=== PATIENT | female | born 1965 | race Two or more races ===

== ENCOUNTER 2024-08-31 01:24 | Inpatient (IN) | payer MEDICAID, SELFPAY ==
[2024-08-31] VITALS (15 sets, daily range): BP systolic 107–170; BP diastolic 75–90; PULSE 62–85; RESP 15–24; TEMP 36.4–36.9; O2SAT 95–98; BMI 27.3; BMI 29.0
--- NOTE | 2024-08-31 01:43 | XR_ITS ---
Examination: AP chest single view Technique one AP portable upright chest single view Exam date 9: August 31, 2024 0204 hours INDICATIONS: Coughing shortness of breath today. FINDINGS: Normal heart size. Lungs are clear. The osseous structures are intact IMPRESSION: No active disease
--- NOTE | 2024-08-31 01:44 | EDRME_ITS ---
Rapid Medical Screening Exam [facility] Arrival date/time: 08/31/24 01:24 58F with history of DM and HTN presents to ED with 1 week of worsening cough and SOB. Chief Complaint: Asthma Vital signs: Vital Signs Temperature 98.1 F 08/31/24 01:32 Pulse Rate 82 08/31/24 01:32 Respiratory Rate 24 H 08/31/24 01:32 Blood Pressure 170/90 H 08/31/24 01:32 Pulse Oximetry (%) 96 08/31/24 01:32
[2024-08-31] MEDS: DEXAMETHASONE SOD PHOS INJ 10 MG/ML VIAL PO (01:58)
[2024-08-31] MEDS: SODIUM CHLORIDE RT SOL 0.9% 3 ML NEBU INH (02:30)
[2024-08-31] MEDS: BUDESONIDE RT 0.5 MG/2 ML NEBU INH (02:30)
[2024-08-31] MEDS: LEVALBUTEROL RT 1.25 MG/0.5 ML NEBU 5 MG INH (02:30)
[2024-08-31] MEDS: IPRATROPIUM RT 0.5 MG/ 2.5 ML NEBU 1 MG INH (02:30)
[2024-08-31 03:17] LABS: Alanine Aminotransferase 27 U/L (10-49); Albumin, Serum 4.7 gm/dL (3.5-5.0); Albumin/Globulin Ratio 1.6 (1.2-2.2); Alkaline Phosphatase 109 U/L (46-116); Anion Gap 9 (7-16); Aspartate Amino Transferase 19 U/L (0-34); B-Type Natriuretic Peptide < 20 pg/mL (0-100); BUN/Creatinine Ratio 13 Ratio (12-20); Bilirubin,Total 0.6 mg/dL (0.3-1.2); Blood Urea Nitrogen 8 mg/dL (9-23); Calcium 9.9 mg/dL (8.3-10.6); Calcium (Corrected) 9.9 mg/dL (8.5-10.1); Carbon Dioxide 25.9 mMol/L (20.0-31.0); Chloride 102 mMol/L (98-107); Creatinine (Component) 0.6 mg/dL (0.6-1.3); Glucose 175 mg/dL (74-106); Magnesium 2.1 mg/dL (1.6-2.6); Osmolality,Calculated 276 (275-295); Potassium 3.8 mMol/L (3.4-5.1); Procalcitonin 0.07 ng/ml (0.0-0.49); Sodium 137 mMol/L (136-145); Total Protein 7.7 gm/dL (5.7-8.2); Troponin I < 0.020 ng/mL (0.0-0.045); eGFR > 60 See Note
[2024-08-31 03:21] LABS: Basophils # (Auto) 0.1 Thou/mm3 (0.0-0.2); Basophils % (Auto) 1 % (0-2.5); Eosinophils # (Auto) 2.4 Thou/mm3 (0.0-0.5); Eosinophils % (Auto) 18 % (0-10); Hemoglobin 13.8 g/dL (12.0-16.0); Immature Granulocytes % (Auto) 0 % (0-0); Immature Granulocytes Auto 0.04 Thou/mm3 (0.00-0.00); Lymphocytes # (Auto) 4.2 Thou/mm3 (1.0-4.8); Lymphocytes % (Auto) 33 % (10-50); Mean Corpuscular HGB Conc 32.1 g/dl (31.0-37.0); Mean Corpuscular Hemoglobin 28.5 pg (25.0-35.0); Mean Corpuscular Volume 89 fL (80-100); Monocytes # (Auto) 0.8 Thou/mm3 (0.0-0.8); Monocytes % (Auto) 6 % (0-12); Neutrophils # (Auto) 5.4 Thou/mm3 (1.8-7.7); Neutrophils % (Auto) 42 % (37-80); Nucleated Red Blood Cell % 0 /100 WBC (0); Platelet Count 228 Thou/mm3 (140-440); RDW Standard Deviation 42.7 fL (36.4-46.3); Red Blood Count 4.85 Miln/mm3 (4.00-5.20)
[2024-08-31] MEDS: MethylPREDNISolone SOD SUCC 62.5 MG/ML 2ML VIAL 125 MG IVP (03:25)
[2024-08-31] MEDS: Magnesium Sulfate 2 GM Ivpb 2 GM/50 ML BAG IV (03:44)
[2024-08-31 03:48] LABS: Path Review Blood Smear Sent to Pathologist
[2024-08-31 03:53] LABS: D-Dimer < 250 ng/mL (<600)
--- NOTE | 2024-08-31 04:54 | ESHP_ITS ---
<Statement entered by Bishnu Pozo MD - 08/31/24 21:34> I Bishnu Pozo MD reviewed the note and agree with the resident's assessment & plan with exceptions as below. I have personally reviewed labs, imaging, home meds/prior records, examined the patient, formulated and discussed management plan with the IM team. A 58-year F with Hx of HTN, HLD, DM, asthma with recent sick contact presented to ED with shortness of breath and wheezing for past 5-7 days. Patient noted to be tachypneic, in mild respiratory distress with mild leukocytosis. Procalcitonin within normal limits, CXR unremarkable for clear infiltrates. Admitted for acute asthma exacerbation with potential viral respiratory tract infection. Administer magnesium sulfate 2 mg x 1 IV, DuoNeb Q 15 hours x 4 with continuation of DuoNeb every 4 hours, start on Dulera twice daily, administer prednisone 40 mg daily x 5 days. Patient noted to have significant triglyceridemia. Started on high intensity statins. Documentation for date of: 08/31/24 HPI History of Present Illness History of present illness: The patient is a 58-year-old female with a past medical history of hypertension, diabetes, asthma presenting from home to the ED on 08/31/2024 with shortness of breath and wheezing of about a weeks duration. She was in her usual state of health until about a week ago after visiting her in rehab when she realized that she was getting increasingly short of breath. About 3 days later, she had a lot of wheezing and was using her rescue inhaler but realized that she required it a lot more than usual. She denies any sick contact and she is unaware of whether or not she exposed to any environmental triggers. She also endorses cough that initially was dry but has progressively been productive with whitish sputum, more bothersome and causes her chest pain because of how frequently and intensely she coughs. At baseline, the patient states that she only requires her inhaler about once every 2 weeks and has not had any exacerbation in many months. She denies fever, hemoptysis, palpitations, weight loss or night sweats. ED course: In the ED, patient was afebrile, initially hypertensive and tachypneic with labored breathing, initially saturating at 96% on room air but had to be put on oxygen as every time she coughed she was noted to desat. CBC is unremarkable as well as CMP except for glucose of 175. Chest x-ray was done which shows no consolidations some minimal hilar lymphadenopathy, otherwise unremarkable-pending final read. In the ED, she received Solu-Medrol, dexamethasone, magnesium and breathing treatments but persistently requiring oxygen. PMHx-as above PSHx-male Social sbxrsvk-zev-eoivot does not drink alcohol or use illicit drugs Home Meds-metformin 500 mg daily Review of Systems Review of Systems Narrative Review of Systems: GENERAL: Denies fevers/chills or diaphoresis. HEENT: Denies headache or visual/hearing changes. Denies nasal discharge. NEURO: Denies unusual weakness or difficulty speaking. CARDIO: Admits chest pain denies palpitations PULM: Admits SOB, coughing and wheezing. GI: Denies abdominal pain, N/V/C/D/reflux/gas, bright red blood per rectum or melena. Reports having BMs. URO: Denies burning/itching/pain/urinary changes. MSK/EXT/SKIN: Denies joint/skeletal/muscle pain, issues/changes in upper or lower extremities, itchiness, or superficial pain. PSYCH: Cooperative, pleasant mood & affect. Exam Vital Signs Temp Pulse Resp BP Pulse Ox O2 Flow Rate 98.1 F 79 16 170/90 H 97 2 08/31/24 01:32 08/31/24 03:15 08/31/24 03:15 08/31/24 01:32 08/31/24 03:15 08/31/24 03:15 Narrative Exam GENERAL: AAOX3 NEURO: CAMPUS AIDE grossly intact, moves extremities x4 HEENT: Moist mucosa. Eyes open, symmetrical, & clear CARDIO: No chest pain on palpation. Heart RRR, no obvious murmurs PULM: NDiffuse wheezing in all lung martínez. GI: Abdomen soft, nondistended, no pain on palpation. BSx4 URO/[employer]:: No further abnormalities noted. SKIN/MSK/EXT: Atrophic lower extremities Results: Labs 08/31/24 02:04 08/31/24 02:04 Labs: Short CBC 08/31/24 Range/Units 02:04 WBC 13.0 H (3.6-11.0) Thou/mm3 Hgb 13.8 (12.0-16.0) g/dL Hct 43.0 (36.0-46.0) % Plt Count 228 (140-440) Thou/mm3 BMP 08/31/24 02:04 Sodium 137 Potassium 3.8 Chloride 102 Carbon Dioxide 25.9 BUN 8 L Creatinine 0.6 Glucose 175 H Calcium 9.9 Cardiac Enzymes 08/31/24 Range/Units 02:04 Troponin I < 0.020 (0.0-0.045) ng/mL Liver Function 08/31/24 Range/Units 02:04 Total Bilirubin 0.6 (0.3-1.2) mg/dL AST 19 (0-34) U/L ALT 27 (10-49) U/L Alkaline Phosphatase 109 (46-116) U/L Albumin 4.7 (3.5-5.0) gm/dL Quality Measures Quality Measures VTE prophylaxis Medications Home Medications and Allergies Home Medications ?Medication ?Instructions ?Recorded ?Confirmed ?Type empagliflozin 25 mg tablet 25 mg PO QAM 04/01/23 04/01/23 History (Jardiance) lisinopril 2.5 mg tablet 2.5 mg PO QDAY 04/01/23 04/01/23 History pravastatin 40 mg tablet 40 mg PO QDAY 04/01/23 04/01/23 History sitagliptin phosphate 50 1 tab PO BID 04/01/23 04/01/23 History mg-metformin 1,000 mg tablet (Janumet) Allergies Allergy/AdvReac Type Severity Reaction Status Date / Time naproxen AdvReac Intermediate RASH, BODY Verified 04/01/23 13:49 HEAVINESS, NAUSEA Visit Medications Acetaminophen (Acetaminophen 325 Mg Tablet) 650 mg PO Q6H PRN PRN Reason: Pain 1-3 or Fever >100.3 Stop: 09/30/24 04:41 Heparin Sodium (Porcine) (Heparin Sod Inj 5000 Unit/Ml Vial) 5,000 unit SC Q12HR SANDEEP Stop: 09/14/24 08:59 Ondansetron HCl (Ondansetron Inj 2 Mg/Ml Inj 2 Ml) 4 mg IV Q6H PRN; Protocol PRN Reason: NAUSEA OR VOMITING Stop: 09/30/24 04:41 Sodium Chloride (Sodium Chloride Rt Lashaun 0.9% 3 Ml Nebu) 3 ml INH PRN PRN PRN Reason: SOLN Stop: 09/30/24 01:42 Last Admin: 08/31/24 02:30 Dose: 3 ml Discontinued Medications Budesonide (Budesonide Rt 0.5 Mg/2 Ml Nebu) 0.5 mg INH X1 ONE Stop: 08/31/24 01:46 Last Admin: 08/31/24 02:30 Dose: 0.5 mg Dexamethasone Sodium Phosphate (Dexamethasone Sod Phos Inj 10 Mg/Ml Vial) 10 mg PO X1 ONE Stop: 08/31/24 01:44 Last Admin: 08/31/24 01:58 Dose: 10 mg Magnesium Sulfate (Magnesium Sulfate Ivpb) 4 gm in 50 mls @ 12.5 mls/hr IV X1 ONE Stop: 08/31/24 07:16 Last Admin: 08/31/24 03:49 Dose: Not Given Magnesium Sulfate (Magnesium Sulfate Ivpb) 2 gm in 50 mls @ 999 mls/hr IV X1 ONE Stop: 08/31/24 03:43 Last Admin: 08/31/24 03:44 Dose: 999 mls/hr Ipratropium [place] (Ipratropium Rt 0.5 Mg/ 2.5 Ml Nebu) 1 mg INH X1 ONE Stop: 08/31/24 01:44 Last Admin: 08/31/24 02:30 Dose: 1 mg Levalbuterol HCl (Levalbuterol Rt 1.25 Mg/0.5 Ml Nebu) 5 mg INH X1 ONE Stop: 08/31/24 01:44 Last Admin: 08/31/24 02:30 Dose: 5 mg Methylprednisolone Sodium Succinate (Methylprednisolone Sod Succ 62.5 Mg/Ml 2ml Vial) 125 mg IVP X1 ONE Stop: 08/31/24 03:18 Last Admin: 08/31/24 03:25 Dose: 125 mg Assessment & Plan Assessment Summary: The patient is a 58-year-old female with a past medical history of hypertension, diabetes, asthma presenting from home to the ED on 08/31/2024 with shortness of breath and wheezing of about a weeks duration. #Acute hypoxic respiratory failure #Asthma exacerbation #History of asthma The patient presented with 1 week history of shortness of breath and wheezing, associated with initial dry cough, which became productive with whitish sputum and mild chest pain whenever she coughed intensely, not exacerbated by inspiration. She is unsure whether or not she was exposed to any environmental triggers. At baseline, she only requires her inhaler about once every 2 weeks and has not had any exacerbation in many months. In the ED, patient was noted to have diffuse wheezing and was given dexamethasone, Solu-Medrol, magnesium and breathing treatments. Chest x-ray was negative for pneumonia and showed some hilar lymphadenopathy. Plan: -Admit to med telemetry -IV Solu-Medrol 40 mg daily -DuoNebs scheduled and as needed -Oxygen as needed -COVID, influenza, RSV #History of diabetes Patient has a history of diabetes reports that she is on metformin 500 mg daily. No A1c on file. Blood glucose on admission-175 Plan: -A1c -Blood glucose check AC -Insulin sliding scale #History of hypertension The patient has a documented history of hypertension but reports that she is not on any medications. Blood pressure on admission-170/90 but on examination, 117/72. Plan: -Continue to monitor blood pressure -Start antihypertensive if blood pressure stays elevated Health maintenance: Dispo: Med[facility] Diet: Regular DVT: SC Heparin Dobbins: None Lines: Peripheral Med Rec: Pending, f/u PT: Not ordered Code: Full Case was discussed with attending physician, Dr Sánchez Toribio MD PGY-1
--- NOTE | 2024-08-31 05:03 | EDNOTE_ITS ---
ED Asthma RME/HPI General Chief Complaint: Asthma Stated Complaint: SOB, HX ASTHMA Time Seen by Provider: 08/31/24 03:22 Arrival date/time: 08/31/24 01:24 RME / HPI RME / HPI Narrative: 08/31/24 01:24 58F with history of DM and HTN presents to ED with 1 week of worsening cough and SOB. This section includes all my notes and documentations, including HPI, PE, and ED course. Gadiel Chavis MD HPI: 58-year-old female here with about a week history of worsening cough, productive cough, purulent sputum, and dyspnea. No fever. No chest pain. Has asthma. No other complaints. ROS: All negative except as documented in HPI. Physical Exam: General: Alert and oriented. Hacking cough noted. Hypoxia noted needing oxygen. Eyes: Conjunctivae and lids clear. ENT: No nasal congestion. Pharynx normal. TM normal bilaterally. Neck: Supple. Heart: RRR. Lungs: Moderate respiratory distress. Severely decreased air movement with diffuse wheezing. Abdomen: Soft and nontender. Back: No CVA tenderness. Skin: Warm and dry. Neuro: Alert and oriented X 3. I reviewed all diagnostic test results. My interpretation of the EKG is sinus rhythm with nonspecific ST?T changes. My interpretation of the chest x-ray is no acute findings, official radiology report is pending. Blood tests remarkable for negative troponin/D-dimer/BNP. At this point, diagnoses include acute respiratory failure with asthma exacerba tion. Treatment here included oxygen, steroids, neb treatments, and MgSO4 2 gram IV. Significant improvement not noted. I discussed the case with our hospitalist. About the presentation and exam and diagnostics and treatments here. And need of further care in the hospital. Will accept the patient. Gadiel Chavis MD Related Data Home Medications ?Medication ?Instructions ?Recorded ?Confirmed empagliflozin 25 mg tablet 25 mg PO QAM 04/01/23 04/01/23 (Jardiance) lisinopril 2.5 mg tablet 2.5 mg PO QDAY 04/01/23 04/01/23 pravastatin 40 mg tablet 40 mg PO QDAY 04/01/23 04/01/23 sitagliptin phosphate 50 1 tab PO BID 04/01/23 04/01/23 mg-metformin 1,000 mg tablet (Janumet) Allergies Allergy/AdvReac Type Severity Reaction Status Date / Time naproxen AdvReac Intermediate RASH, BODY Verified 04/01/23 13:49 HEAVINESS, NAUSEA Course Quality Measures none Orders Category Date Time Status Bedside COVID-19 Antigen Test NOW Care 08/31/24 01:44 Active Bedside Influenza A&B Antigen Test NOW Care 08/31/24 01:44 Active COVID-19 Screening Questionnaire NOW Care 08/31/24 04:12 Active Decision to Admit X1 Care 08/31/24 04:12 Active EKG (ED ONLY) *Do not use* NOW Care 08/31/24 01:26 Completed EKG (ED Only) Stat Exams 08/31/24 01:26 Ordered XR chest 1V portable Stat Exams 08/31/24 01:43 Taken B-Type Natriuretic Peptide Stat Lab 08/31/24 02:04 Completed CBC Stat Lab 08/31/24 02:04 Completed Comprehensive Metabolic Panel Stat Lab 08/31/24 02:04 Completed D-Dimer Stat Lab 08/31/24 02:04 Completed Lactate (Lactic Acid) Stat Lab 08/31/24 02:04 Completed Magnesium Stat Lab 08/31/24 02:04 Completed Path Review Blood Smear Stat Lab 08/31/24 02:04 Completed Procalcitonin Stat Lab 08/31/24 02:04 Completed Troponin I Stat Lab 08/31/24 02:04 Completed Budesonide Rt [Pulmicort Rt Lashaun] Med 08/31/24 01:45 Discontinued 0.5 mg INH X1 ONE Dexamethasone Inj [Decadron Inj] Med 08/31/24 01:43 Discontinued 10 mg PO X1 ONE Ipratropium [place] Rt Lashaun [Atrovent Rt Lashaun] Med 08/31/24 01:43 Discontinued 1 mg INH X1 ONE Levalbuterol Rt [Xopenex Rt Lashaun] Med 08/31/24 01:43 Discontinued 5 mg INH X1 ONE Magnesium Sulfate 2 GM Ivpb [Magnesium Sulfate Ivpb] Med 08/31/24 03:41 Discontinued 2 gm in 50 ml IV X1 Magnesium Sulfate 4 GM Ivpb [Magnesium Sulfate Ivpb] Med 08/31/24 03:17 Discontinued 4 gm in 50 ml IV X1 MethylPREDNISolone.* [SoluMEDROL Inj] Med 08/31/24 02:52 Discontinued 125 mg .ROUTE .STK-MED ONE MethylPREDNISolone.* [SoluMEDROL Inj] Med 08/31/24 03:17 Discontinued 125 mg IVP X1 ONE Sodium Chloride Rt Lashaun 0.9% [NS Rt Lashaun 0.9%] Med 08/31/24 01:43 Active 3 ml INH PRN PRN Vital Signs Vital signs: Vital Signs Temperature 98.1 F 08/31/24 01:32 Pulse Rate 82 08/31/24 01:32 Respiratory Rate 24 H 08/31/24 01:32 Blood Pressure 170/90 H 08/31/24 01:32 Pulse Oximetry (%) 96 08/31/24 01:32 Asthma Patient data External records reviewed:: [facility] previous records Clinical information provided by:: patient and family Social determinants that could affect healthcare access:: none Patient has the following chronic illnesses:: Asthma and DM and HTN How is presenting disease/condition affected by chronic disease/condition?: exacerbated by Evaluation data The following diagnostics were reviewed and interpreted by me:: lab results, radiology exam(s) and EKG tracing(s) (Sinus rhythm with no acute ST-T changes) Lab and/or radiology exams considered but not ordered:: None Interpretation Summary: Respiratory failure and asthma exacerbation Medications / Prescriptions Medications or Prescriptions considered but not ordered:: None Medication administrations:: Medication Administration History Acetaminophen (Acetaminophen 325 Mg Tablet) 650 mg PO Q6H PRN PRN Reason: Pain 1-3 or Fever >100.3 Stop: 09/30/24 04:41 Albuterol/Ipratropium (Albuterol/Ipratropium (Duoneb) Rt Lashaun 3 Ml Nebu) 3 ml INH Q4HRRT SANDEEP Stop: 09/30/24 06:59 Albuterol/Ipratropium (Albuterol/Ipratropium (Duoneb) Rt Lashaun 3 Ml Nebu) 3 ml INH Q2HR PRN PRN Reason: SHORTNESS OF BREATH OR WHEEZE Stop: 09/30/24 04:57 Heparin Sodium (Porcine) (Heparin Sod Inj 5000 Unit/Ml Vial) 5,000 unit SC Q12HR SANDEEP Stop: 09/14/24 08:59 Methylprednisolone Sodium Succinate (Methylprednisolone Sod Succ 40 Mg Vial) 40 mg IVP QDAY SANDEEP Stop: 09/07/24 08:59 Ondansetron HCl (Ondansetron Inj 2 Mg/Ml Inj 2 Ml) 4 mg IV Q6H PRN; Protocol PRN Reason: NAUSEA OR VOMITING Stop: 09/30/24 04:41 Sodium Chloride (Sodium Chloride Rt Lashaun 0.9% 3 Ml Nebu) 3 ml INH PRN PRN PRN Reason: SOLN Stop: 09/30/24 01:42 Last Admin: 08/31/24 02:30 Dose: 3 ml Documented By: LETICIA Discontinued Medications Budesonide (Budesonide Rt 0.5 Mg/2 Ml Nebu) 0.5 mg INH X1 ONE Stop: 08/31/24 01:46 Last Admin: 08/31/24 02:30 Dose: 0.5 mg Documented By: LETICIA Dexamethasone Sodium Phosphate (Dexamethasone Sod Phos Inj 10 Mg/Ml Vial) 10 mg PO X1 ONE Stop: 08/31/24 01:44 Last Admin: 08/31/24 01:58 Dose: 10 mg Documented By: MACIEL Magnesium Sulfate (Magnesium Sulfate Ivpb) 4 gm in 50 mls @ 12.5 mls/hr IV X1 ONE Stop: 08/31/24 07:16 Last Admin: 08/31/24 03:49 Dose: Not Given Documented By: MACIEL Non-Admin Reason: Discontinued Magnesium Sulfate (Magnesium Sulfate Ivpb) 2 gm in 50 mls @ 999 mls/hr IV X1 ONE Stop: 08/31/24 03:43 Last Admin: 08/31/24 03:44 Dose: 999 mls/hr Documented By: MACIEL Ipratropium [place] (Ipratropium Rt 0.5 Mg/ 2.5 Ml Nebu) 1 mg INH X1 ONE Stop: 08/31/24 01:44 Last Admin: 08/31/24 02:30 Dose: 1 mg Documented By: LETICIA Levalbuterol HCl (Levalbuterol Rt 1.25 Mg/0.5 Ml Nebu) 5 mg INH X1 ONE Stop: 08/31/24 01:44 Last Admin: 08/31/24 02:30 Dose: 5 mg Documented By: LETICIA Methylprednisolone Sodium Succinate (Methylprednisolone Sod Succ 62.5 Mg/Ml 2ml Vial) 125 mg IVP X1 ONE Stop: 08/31/24 03:18 Last Admin: 08/31/24 03:25 Dose: 125 mg Documented By: MACIEL Methylprednisolone Sodium Succinate (Methylprednisolone Sod Succ 62.5 Mg/Ml 2ml Vial) Confirm Administered Dose 125 mg .ROUTE .STK-MED ONE Stop: 08/31/24 02:53 Last Admin: 08/31/24 03:20 Dose: Not Given Documented By: SF Non-Admin Reason: Override Medication Consultations Consultation(s) initiated? (list below): No Diagnosis Differential diagnosis asthma: Acute exacerbation, Status asthmaticus, Acute asthmatic bronchitis, PE, Pneumonia, COPD exacerbation, Pulmonary edema systolic, Pulmonary edema dystolic, ARDS and Pneumothorax Most likely diagnosis given after review of the tests above:: Respiratory failure and asthma exacerbation Admission Indicated Admission indicated?: indicated Explain why admission is indicated or not indicated:: Respiratory failure with hypoxia Admission Request Was there a request for admission?: Yes Admission Attestation Admission request attestation: Discussed case with Hospitalist service regarding admission. Discussed patients ED course, exam findings, labs, and radiology results. The Hospitalist [agrees,declines] to accept the patient for admission. Disposition Plan Disposition Plan: Admit Discharge Plan Plan Patient Disposition: Admit Acute Care w/in Hospital Problem List Clinical Impression: Asthma with acute exacerbation, Acute respiratory failure with hypoxia
[2024-08-31 05:16] LABS: Basophils # (Auto) 0.1 Thou/mm3 (0.0-0.2); Basophils % (Auto) 1 % (0-2.5); Immature Granulocytes % (Auto) 0 % (0-0); Mean Corpuscular Volume 87 fL (80-100); Neutrophils % (Auto) 47 % (37-80); Nucleated Red Blood Cell % 0 /100 WBC (0)
[2024-08-31 05:17] LABS: Immature Granulocytes Auto 0.05 Thou/mm3 (0.00-0.00); Monocytes # (Auto) 0.7 Thou/mm3 (0.0-0.8)
[2024-08-31 05:33] LABS: Alanine Aminotransferase 27 U/L (10-49); Albumin, Serum 4.7 gm/dL (3.5-5.0); Albumin/Globulin Ratio 1.5 (1.2-2.2); Alkaline Phosphatase 111 U/L (46-116); Anion Gap 11 (7-16); Aspartate Amino Transferase 19 U/L (0-34); BUN/Creatinine Ratio 15 Ratio (12-20); Bilirubin,Total 0.6 mg/dL (0.3-1.2); Blood Urea Nitrogen 9 mg/dL (9-23); Carbon Dioxide 24.2 mMol/L (20.0-31.0); Cardiac Risk Estimate 4.6 RATIO (3.7-5.6); Chloride 102 mMol/L (98-107); Cholesterol 234 mg/dL (132-200); Creatinine (Component) 0.6 mg/dL (0.6-1.3); Eosinophils # (Auto) 2.3 Thou/mm3 (0.0-0.5); Eosinophils % (Auto) 18 % (0-10); Globulin 3.1 gm/dL (2.3-3.5); Glucose 160 mg/dL (74-106); HDL Cholesterol 51 mg/dL (40-60); Hematocrit 42.7 % (36.0-46.0); Hemoglobin 13.9 g/dL (12.0-16.0); LDL Cholesterol,Calculated 108 mg/dL (0-130); Lymphocytes # (Auto) 3.8 Thou/mm3 (1.0-4.8); Lymphocytes % (Auto) 29 % (10-50); Magnesium 2.2 mg/dL (1.6-2.6); Mean Corpuscular HGB Conc 32.6 g/dl (31.0-37.0); Mean Corpuscular Hemoglobin 28.3 pg (25.0-35.0); Monocytes % (Auto) 6 % (0-12); Neutrophils # (Auto) 6.2 Thou/mm3 (1.8-7.7); Osmolality,Calculated 275 (275-295); Platelet Count 227 Thou/mm3 (140-440); Potassium 3.8 mMol/L (3.4-5.1); Red Blood Count 4.92 Miln/mm3 (4.00-5.20); Sodium 137 mMol/L (136-145); Thyroid Stimulating Hormone 2.34 uIU/mL (0.55-4.78); Total Protein 7.8 gm/dL (5.7-8.2); Triglycerides 377 mg/dL (30-150); White Blood Count 13.2 Thou/mm3 (3.6-11.0); eGFR > 60 See Note
[2024-08-31 05:52] LABS: Glucose Estimated Average 134 mg/dL (80-131); Hemoglobin A1C 6.3 % Hgb (4.8-6.0)
[2024-08-31] MEDS: INSULIN LISPRO (AdmeLOG) 1 UNIT/0.01 ML UNIT SC ×2 (07:50→12:12)
[2024-08-31] MEDS: ALBUTEROL/IPRATROPIUM (Duoneb) RT SOL 3 ML NEBU INH ×3 (08:17→20:24)
[2024-08-31] MEDS: LOSARTAN POTASSIUM 25 MG TABLET PO (09:59)
[2024-08-31] MEDS: HEPARIN SOD INJ 5000 UNIT/ML VIAL SC ×2 (09:59→20:47)
--- NOTE | 2024-08-31 15:34 | ESPR_ITS ---
Documentation for date of: 08/31/24 Subjective Subjective Interval history: Patient was at bedside this morning. No overnight events. Patient still had a lot of wheezing bilateral mostly on expiration. Will continue with Solu-Medrol and breathing treatments for now. Added incentive spirometry as well. No other complaints at this time. Exam Vital Signs Temp Pulse Resp BP Pulse Ox O2 Del Method O2 Flow Rate 97.7 F 67 15 130/76 96 Nasal Cannula 4 08/31/24 14:07 08/31/24 14:07 08/31/24 14:07 08/31/24 14:07 08/31/24 14:07 08/31/24 14:07 08/31/24 14:07 Narrative Exam General: A/O x3, mild respiratory distress Eyes: PERRL, EOMI. Anicteric, vision grossly intact. Ears: No ear pain, no ear discharge, Hearing grossly intact. Nose: No nasal discharge. Mouth/Throat: Dry mucous membranes, no redness, no lesions. Neck: Neck supple, non-tender, no cervical lymphadenopathy. Lungs: Wheezing FORREST, No accessory muscle use. Cardio: Normal S1/S2, regular rhythm, no murmurs, no JVD Abdomen: Soft, non-tender, no palpable masses, peristalsis present, no guarding or rebound. Extremities: Symmetrical, no significant deformities, no peripheral edema , non-tender, peripheral pulses presents. Skin: No rashes, no lesions, warm to touch. Neuro: No focal neurological deficits. motor and sensory intact Psych: Cooperative, appropriate mood and effect. Objective Labs 09/01/24 05:10 09/01/24 05:10 Labs: Laboratory Results - last 24 hr 08/31/24 08/31/24 02:04 05:05 WBC 13.0 H 13.2 H RBC 4.85 4.92 Hgb 13.8 13.9 Hct 43.0 42.7 MCV 89 87 MCH 28.5 28.3 MCHC 32.1 32.6 RDW Std Deviation 42.7 42.0 Plt Count 228 227 Neut % (Auto) 42 47 Lymph % (Auto) 33 29 [place] % (Auto) 6 6 Eos % (Auto) 18 H 18 H Baso % (Auto) 1 1 Neut # (Auto) 5.4 6.2 Lymph # (Auto) 4.2 3.8 [place] # (Auto) 0.8 0.7 Eos # (Auto) 2.4 H 2.3 H Baso # (Auto) 0.1 0.1 Immature Gran # (Auto) 0.04 H 0.05 H Absolute Nucleated RBC 0.00 0.00 Immature Gran % 0 0 Nucleated RBC % 0 0 Smear Path Review Sent to Pathologist D-Dimer < 250 Sodium 137 137 Potassium 3.8 3.8 Chloride 102 102 Carbon Dioxide 25.9 24.2 Anion Gap 9 11 BUN 8 L 9 Creatinine 0.6 0.6 Estim Creat Clear Calc 84.0 84.0 eGFR > 60 > 60 BUN/Creatinine Ratio 13 15 Glucose [address] Glu mg/dL 134 H Hemoglobin A1c 6.3 H Calculated Osmolality 276 275 Lactic Acid 2.0 Calcium 9.9 10.0 Corrected Calcium 9.9 10.0 Magnesium 2.1 2.2 Total Bilirubin 0.6 0.6 AST 19 19 ALT 27 27 Alkaline Phosphatase 109 111 Troponin I < 0.020 B-Natriuretic Peptide < 20 Total Protein 7.7 7.8 Albumin 4.7 4.7 Globulin 3.0 3.1 Albumin/Globulin Ratio 1.6 1.5 Triglycerides 377 H Cholesterol 234 H LDL Cholesterol, Calc 108 HDL Cholesterol 51 Cholesterol/HDL Ratio 4.6 Procalcitonin 0.07 TSH 2.34 Quality Measures Quality Measures VTE prophylaxis Assessment & Plan Assessment Current Active Medications: Generic Name Dose Route Start Last Admin Trade Name Freq PRN Reason Stop Dose Admin Acetaminophen 650 mg 08/31/24 04:42 Acetaminophen 325 Mg Tablet PO 09/30/24 04:41 Q6H PRN Pain 1-3 or Fever >100.3 Albuterol 2 puff 08/31/24 13:56 Albuterol Inh 8 Gm INH 09/30/24 13:59 Q2HR PRN wheezing/sob Dextrose 25 ml 08/31/24 05:10 Dextrose 50%-Water Inj 50 Ml Syringe IV 09/30/24 05:09 Q15MIN PRN BG 50-70 responsive npo pt Dextrose 50 ml 08/31/24 05:10 Dextrose 50%-Water Inj 50 Ml Syringe IV 09/30/24 05:09 Q15MIN PRN BG <50 OR BG <70 & pt unresponsive Glucagon 1 mg 08/31/24 05:10 Glucagon Inj 1 Mg Vial IM Q15MIN PRN BG <70, and no IV access Guaifenesin/Dextromethorphan 1 each 08/31/24 15:00 Guaifenesin/Dm Tablet PO 09/30/24 14:59 BID SANDEEP Heparin Sodium (Porcine) 5,000 unit 08/31/24 09:00 08/31/24 09:59 Heparin Sod Inj 5000 Unit/Ml Vial SC 09/14/24 08:59 5,000 unit Q12HR SANDEEP Administration Insulin Human Lispro 0 unit 08/31/24 11:30 08/31/24 12:12 Insulin Lispro (Admelog) 1 Unit/0.01 Ml Unit SC 09/30/24 11:29 4 unit AC SANDEEP Administration Protocol Losartan Potassium 25 mg 08/31/24 09:15 08/31/24 09:59 Losartan Potassium 25 Mg Tablet PO 09/30/24 09:14 25 mg QDAY SANDEPE Administration Methylprednisolone Sodium Succinate 40 mg 08/31/24 09:00 08/31/24 09:58 Methylprednisolone Sod Succ 40 Mg Vial IVP 09/07/24 08:59 40 mg QDAY SANDEEP Administration Ondansetron HCl 4 mg 08/31/24 04:42 Ondansetron Inj 2 Mg/Ml Inj 2 Ml IV 09/30/24 04:41 Q6H PRN NAUSEA OR VOMITING Protocol Fluticasone/Salmeterol 2 puff 08/31/24 19:00 Fluticasone/Salmeterol 250/50 14 Dose Inh INH 09/30/24 18:59 BIDRT SANDEEP Sodium Chloride 3 ml 08/31/24 01:43 08/31/24 02:30 Sodium Chloride Rt Lasha[place] 0.9% 3 Ml Nebu INH 09/30/24 01:42 3 ml PRN PRN Administration SOLN Plan 58-year-old female with past medical history of hypertension, diabetes, and asthma was admitted to the hospital on 08/31/2024 due to acute hypoxic respiratory failure likely secondary to asthma exacerbation. #Acute hypoxic especially failure likely secondary to #Asthma exacerbation #Hx of asthma ? Patient came in with complaints of 1 week of wheezing and shortness of breath as well as some dry cough which became productive with time. ? Patient does not have any sick contacts ? Chest x-ray did not have any pneumonia. Plan: ? Continue Solu-Medrol 40 mg IV daily ? Continue breathing treatments ? Continue oxygen as needed ? Incentive spirometry ? Will continue to monitor #DM2 ? A1c 6.3 today Plan: ? ISS ? Accu-Cheks and hypoglycemic protocol ordered #Hypertension ? Patient's blood pressure has been well-controlled during the hospital stay therefore we will hold antihypertensive medication for now. Disposition: Patient still has wheezing continue Solumedrol and breathing Tx. Diet: Carb low GI prophylaxis: not indicated DVT prophylaxis: Heparin Sc Code: Full Case disclosed with Attending Dr. Dennis and My senior Dr. Jorgensen PGY2. Benny Kohli PGY1 L Ms Garay is a 58-year-old female with past medical history of hypertension, diabetes, and asthma was admitted to the hospital on 08/31/2024 due to acute hypoxic respiratory failure likely secondary to asthma exacerbation. Started on duonebs PRN, albuterol INH and Combivent INH for ICS per GOLD guidelines for Asthma/COPD. She is currently on 2-3L via NC, sats 95-98%. Will monitor for 1 more day. Anticipate DC in 24 hours. Patient examined and case discussed with the team including attending physician. Note reviewed, I agree with the care plan as documented. - Drew Jorgensen MD, PGY 2 Attending Provider Attestation/Addendum I have discussed and was present for the essential components of the history, physical examination, diagnosis, and treatment plan with the resident. I agree with the patient's care as documented by the resident and amended herein by me. Henry Dennis DO. Although this document has been carefully reviewed, there may still be some phonetic and other typographical errors. These errors are purely grammatical due to imperfections in the software program and should not be construed in any way to compromise the substance of the patient's medical care during this visit.
[2024-08-31 18:33] LABS: Respiratory Syncytial Virus Ag Negative (Negative)
[2024-08-31] MEDS: FLUTICASONE/SALMETEROL 250/50 14 DOSE INH 2 PUFF INH (20:23)
[2024-08-31] MEDS: ACETAMINOPHEN 325 MG TABLET 650 MG PO (20:47)
[2024-08-31] MEDS: guaiFENesin/DM TABLET 1 EACH PO (20:47)
[2024-08-31] MEDS: BENZONATATE 100 MG CAPSULE PO (20:47)
[2024-09-01] VITALS (11 sets, daily range): BP systolic 98–138; BP diastolic 53–83; PULSE 62–86; RESP 14–22; TEMP 36–36.9; O2SAT 93–99; BMI 13.0
[2024-09-01] MEDS: ALBUTEROL/IPRATROPIUM (Duoneb) RT SOL 3 ML NEBU INH (01:02)
[2024-09-01 06:26] LABS: Partial Thromboplastin Time 28.5 Seconds (22.0-36.0); Prothrombin Time 11.1 Seconds (9.0-12.2)
[2024-09-01 06:47] LABS: Alanine Aminotransferase 24 U/L (10-49); Albumin, Serum 4.3 gm/dL (3.5-5.0); Albumin/Globulin Ratio 1.5 (1.2-2.2); Alkaline Phosphatase 96 U/L (46-116); Anion Gap 10 (7-16); BUN/Creatinine Ratio 34 Ratio (12-20); Bilirubin,Total 0.9 mg/dL (0.3-1.2); Blood Urea Nitrogen 17 mg/dL (9-23); Calcium 9.6 mg/dL (8.3-10.6); Calcium (Corrected) 9.6 mg/dL (8.5-10.1); Chloride 102 mMol/L (98-107); Creatinine (Component) 0.5 mg/dL (0.6-1.3); Estimated Creatinine Clearance 103.8 mL/min (>60); Globulin 2.9 gm/dL (2.3-3.5); Glucose 125 mg/dL (74-106); Magnesium 2.4 mg/dL (1.6-2.6); Osmolality,Calculated 276 (275-295); Phosphorous 4.7 mg/dL (2.4-5.1); Sodium 137 mMol/L (136-145); Total Protein 7.2 gm/dL (5.7-8.2); eGFR > 60 See Note
[2024-09-01 07:02] LABS: Aspartate Amino Transferase 14 U/L (0-34)
[2024-09-01 07:21] LABS: Basophils % (Auto) 0 % (0-2.5); Eosinophils % (Auto) 0 % (0-10); Hemoglobin 12.7 g/dL (12.0-16.0); Immature Granulocytes % (Auto) 0 % (0-0); Immature Granulocytes Auto 0.06 Thou/mm3 (0.00-0.00); Lymphocytes # (Auto) 2.7 Thou/mm3 (1.0-4.8); Lymphocytes % (Auto) 19 % (10-50); Mean Corpuscular Hemoglobin 28.3 pg (25.0-35.0); Mean Corpuscular Volume 92 fL (80-100); Monocytes # (Auto) 0.9 Thou/mm3 (0.0-0.8); Monocytes % (Auto) 7 % (0-12); Neutrophils # (Auto) 10.4 Thou/mm3 (1.8-7.7); Neutrophils % (Auto) 74 % (37-80); Nucleated Red Blood Cell % 0 /100 WBC (0); Platelet Count 228 Thou/mm3 (140-440); RDW Standard Deviation 45.4 fL (36.4-46.3); Red Blood Count 4.48 Miln/mm3 (4.00-5.20); White Blood Count 14.1 Thou/mm3 (3.6-11.0)
[2024-09-01] MEDS: FLUTICASONE/SALMETEROL 250/50 14 DOSE INH 2 PUFF INH ×2 (07:45→19:45)
[2024-09-01] MEDS: INSULIN LISPRO (AdmeLOG) 1 UNIT/0.01 ML UNIT SC ×2 (08:27→16:47)
[2024-09-01] MEDS: HEPARIN SOD INJ 5000 UNIT/ML VIAL SC ×2 (08:28→20:52)
[2024-09-01] MEDS: LOSARTAN POTASSIUM 25 MG TABLET PO (08:28)
[2024-09-01] MEDS: guaiFENesin/DM TABLET 1 EACH PO ×2 (08:28→20:52)
--- NOTE | 2024-09-01 10:48 | PC.SS ---
Addendum entered by Nargis Salinas 09/01/24 13:52: Updated physician of patient d/c plans. Patient became dizzy today. Prior to hospitalization she was ambulatory with walker. Patient will stay another day to monitor. Possible d/c weekend. Original Note: Patient is alert/oriented. She is Albanian speaking only. Patient states she lives with her children. Patient was admitted for hypoxic resp failure. She states she uses 02 at home as needed. She also uses a walker and cane at home. She is independent with ADL's but children assist as needed. Patient has hx: diabetes. She uses a glucometer machine at home. She follows at [facility] with Dr. Griffin and last appt was 3 weeks ago. SS received call from PT recommending short stay at SNF and patient agreeable . PT states patient was dizzy and not able to ambulate today. SS will set up through [facility]. Patient verbalized her daughter, Marivel, is the point of contact and alt designated caregiver. Family to provide transportation.
--- NOTE | 2024-09-01 11:24 | PC.NURSE ---
Pt on RA, O2 SATS 95%. Upon standing, O2 SATS 94% on RA. Pt states she uses O2 at home.
--- NOTE | 2024-09-01 13:17 | ESPR_ITS ---
Documentation for date of: 09/01/24 Subjective Subjective Interval history: Patient was seen and examined bedside. No acute overnight events. Reported that her shortness of breath improved from the time of admission. Complaining of occasional cough with sputum production. On auscultation, bilateral diffuse expiratory wheeze heard. Initially patient was on 1 L oxygen saturating at 94%. Stopped oxygen and patient was able to maintain at 94 per nurse, when tried to ambulate her, patient started feeling dizzy but no desaturations are noted. Orthostatic vitals are ordered and will observe the patient for today. Planning to discharge tomorrow if patient is able to ambulate without desaturating on room air. Exam Vital Signs Temp Pulse Resp BP Pulse Ox O2 Del Method O2 Flow Rate 97.0 F 86 18 126/77 93 L Nasal Cannula 1 09/01/24 12:00 09/01/24 12:00 09/01/24 12:00 09/01/24 12:00 09/01/24 12:00 09/01/24 12:00 09/01/24 12:00 Narrative Exam General: Awake. HEENT: Normocephalic, atraumatic, mucous membranes moist. Heart: Regular rate and rhythm, no murmurs. Lungs: Bilateral diffuse expiratory wheeze heard. Abdomen: Soft, nondistended, nontender, positive bowel sounds. ?No guarding or rebound tenderness. Neurologic: Alert and oriented x3, no gross neurological deficit, and patient able to move all 4 extremities. Extremities: No edema. Skin: No rash or ecchymoses. Objective Labs 09/01/24 05:10 09/01/24 05:10 Labs: Laboratory Results - last 24 hr 08/31/24 09/01/24 16:13 05:10 WBC 14.1 H RBC 4.48 Hgb 12.7 Hct 41.0 MCV 92 MCH 28.3 MCHC 31.0 RDW Std Deviation 45.4 Plt Count 228 Neut % (Auto) 74 Lymph % (Auto) 19 [place] % (Auto) 7 Eos % (Auto) 0 Baso % (Auto) 0 Neut # (Auto) 10.4 H Lymph # (Auto) 2.7 [place] # (Auto) 0.9 H Eos # (Auto) 0.0 Baso # (Auto) 0.0 Immature Gran # (Auto) 0.06 H Absolute Nucleated RBC 0.00 Immature Gran % 0 Nucleated RBC % 0 PT 11.1 INR 1.0 APTT 28.5 Sodium 137 Potassium 4.0 Chloride 102 Carbon Dioxide 25.0 Anion Gap 10 BUN 17 Creatinine 0.5 L Estim Creat Clear Calc 103.8 eGFR > 60 BUN/Creatinine Ratio 34 H Glucose 125 H Calculated Osmolality 276 Calcium 9.6 Corrected Calcium 9.6 Phosphorus 4.7 Magnesium 2.4 Total Bilirubin 0.9 AST 14 ALT 24 Alkaline Phosphatase 96 Total Protein 7.2 Albumin 4.3 Globulin 2.9 Albumin/Globulin Ratio 1.5 RSV Rapid Negative Quality Measures Quality Measures VTE prophylaxis Assessment & Plan Assessment Current Active Medications: Generic Name Dose Route Start Last Admin Trade Name Freq PRN Reason Stop Dose Admin Acetaminophen 650 mg 08/31/24 04:42 08/31/24 20:47 Acetaminophen 325 Mg Tablet PO 09/30/24 04:41 650 mg Q6H PRN Administration Pain 1-3 or Fever >100.3 Albuterol 2 puff 08/31/24 13:56 Albuterol Inh 8 Gm INH 09/30/24 13:59 Q2HR PRN wheezing/sob Albuterol/Ipratropium 3 ml 08/31/24 18:56 09/01/24 01:02 Albuterol/Ipratropium (Duoneb) Rt [place]asha[place] 3 Ml Nebu INH 09/30/24 18:59 3 ml Q4HRRT PRN Administration SHORTNESS OF BREATH OR WHEEZE Benzonatate 100 mg 08/31/24 19:19 08/31/24 20:47 Benzonatate 100 Mg Capsule PO 09/30/24 19:18 100 mg Q8HR PRN Administration COUGH Protocol Dextrose 25 ml 08/31/24 05:10 Dextrose 50%-Water Inj 50 Ml Syringe IV 09/30/24 05:09 Q15MIN PRN BG 50-70 responsive npo pt Dextrose 50 ml 08/31/24 05:10 Dextrose 50%-Water Inj 50 Ml Syringe IV 09/30/24 05:09 Q15MIN PRN BG <50 OR BG <70 & pt unresponsive Glucagon 1 mg 08/31/24 05:10 Glucagon Inj 1 Mg Vial IM Q15MIN PRN BG <70, and no IV access Guaifenesin/Dextromethorphan 1 each 08/31/24 15:00 09/01/24 08:28 Guaifenesin/Dm Tablet PO 09/30/24 14:59 1 each BID SANDEEP Administration Heparin Sodium (Porcine) 5,000 unit 08/31/24 09:00 09/01/24 08:28 Heparin Sod Inj 5000 Unit/Ml Vial SC 09/14/24 08:59 5,000 unit Q12HR SANDEEP Administration Insulin Human Lispro 0 unit 08/31/24 11:30 09/01/24 08:27 Insulin Lispro (Admelog) 1 Unit/0.01 Ml Unit SC 09/30/24 11:29 2 unit AC SANDEEP Administration Protocol Losartan Potassium 25 mg 08/31/24 09:15 09/01/24 08:28 Losartan Potassium 25 Mg Tablet PO 09/30/24 09:14 25 mg QDAY SANDEEP Administration Methylprednisolone Sodium Succinate 40 mg 08/31/24 09:00 09/01/24 08:28 Methylprednisolone Sod Succ 40 Mg Vial IVP 09/07/24 08:59 40 mg QDAY SANDEEP Administration Ondansetron HCl 4 mg 08/31/24 04:42 Ondansetron Inj 2 Mg/Ml Inj 2 Ml IV 09/30/24 04:41 Q6H PRN NAUSEA OR VOMITING Protocol Fluticasone/Salmeterol 2 puff 08/31/24 19:00 09/01/24 07:45 Fluticasone/Salmeterol 250/50 14 Dose Inh INH 09/30/24 18:59 2 puff BIDRT SANDEEP Administration Sodium Chloride 3 ml 08/31/24 01:43 08/31/24 02:30 Sodium Chloride Rt [place] 0.9% 3 Ml Nebu INH 09/30/24 01:42 3 ml PRN PRN Administration SOLN Plan 58-year-old female with past medical history of hypertension, diabetes, and asthma was admitted to the hospital on 08/31/2024 due to acute hypoxic respiratory failure likely secondary to asthma exacerbation. # Acute hypoxic respiratory failure, resolved # Asthma exacerbation # History of asthma, since 13 years using inhalers ? Patient came in with complaints of 1 week of wheezing and shortness of breath as well as some dry cough which became productive with time. ? Denies fever, burning micturition, abdominal pain, recent travel. ? Chest x-ray did not show any new infiltrates. - RSV is negative Plan: ? Continue Solu-Medrol 40 mg IV daily ? Continue breathing treatments ? Continue oxygen as needed ? Incentive spirometry ? Will continue to monitor #DM2 ? A1c 6.3 today Plan: ? ISS ? Accu-Cheks and hypoglycemic protocol ordered #Hypertension ? Patient's blood pressure has been well-controlled during the hospital stay therefore we will hold antihypertensive medication for now. Disposition: MedSurg Diet: Carb low GI prophylaxis: not indicated DVT prophylaxis: Heparin Sc Code: Full Patient plan of care was discussed with the attending physician, Dr. Sonny Aragon, PGY1 Attending Provider Attestation/Addendum I have discussed and was present for the essential components of the history, physical examination, diagnosis, and treatment plan with the resident. I agree with the patient's care as documented by the resident and amended herein by me. Henry Dennis, DO. Patient seen and evaluated this AM. Patient states she clinically feels improved today, wheezing improved on physical exam bilaterally on physical examination however the patient did get a bit lightheaded when working with physical therapy today as well as shortness of breath. As such, we will keep the patient an additional night and continue steroids, will attempt to get the patient up to chair today, nurse notified. Patient will also need to be discharged with a SARAH and inhaled steroids for improved control. Patient may also need home O2. Will continue to monitor closely Although this document has been carefully reviewed, there may still be some phonetic and other typographical errors. These errors are purely grammatical due to imperfections in the software program and should not be construed in any way to compromise the substance of the patient's medical care during this visit.
[2024-09-01] MEDS: Milk Of Magnesia Susp 30 ML UDC PO (14:36)
[2024-09-02] VITALS (7 sets, daily range): BP systolic 108–123; BP diastolic 73–79; PULSE 56–78; RESP 16–22; TEMP 36–37; O2SAT 93–98
[2024-09-02 06:29] LABS: Basophils # (Auto) 0.1 Thou/mm3 (0.0-0.2); Basophils % (Auto) 1 % (0-2.5); Eosinophils # (Auto) 0.1 Thou/mm3 (0.0-0.5); Eosinophils % (Auto) 1 % (0-10); Hematocrit 40.1 % (36.0-46.0); Hemoglobin 12.7 g/dL (12.0-16.0); Immature Granulocytes % (Auto) 0 % (0-0); Immature Granulocytes Auto 0.05 Thou/mm3 (0.00-0.00); Lymphocytes # (Auto) 4.2 Thou/mm3 (1.0-4.8); Lymphocytes % (Auto) 38 % (10-50); Mean Corpuscular HGB Conc 31.7 g/dl (31.0-37.0); Mean Corpuscular Hemoglobin 28.3 pg (25.0-35.0); Mean Corpuscular Volume 90 fL (80-100); Monocytes # (Auto) 0.7 Thou/mm3 (0.0-0.8); Monocytes % (Auto) 6 % (0-12); Neutrophils # (Auto) 6.2 Thou/mm3 (1.8-7.7); Neutrophils % (Auto) 55 % (37-80); Nucleated Red Blood Cell % 0 /100 WBC (0); Platelet Count 233 Thou/mm3 (140-440); RDW Standard Deviation 44.3 fL (36.4-46.3); Red Blood Count 4.48 Miln/mm3 (4.00-5.20); White Blood Count 11.3 Thou/mm3 (3.6-11.0)
[2024-09-02] MEDS: FLUTICASONE/SALMETEROL 250/50 14 DOSE INH 2 PUFF INH (06:51)
[2024-09-02 07:10] LABS: Alanine Aminotransferase 24 U/L (10-49); Albumin, Serum 4.3 gm/dL (3.5-5.0); Albumin/Globulin Ratio 1.6 (1.2-2.2); Alkaline Phosphatase 86 U/L (46-116); Anion Gap 6 (7-16); Aspartate Amino Transferase 13 U/L (0-34); BUN/Creatinine Ratio 27 Ratio (12-20); Bilirubin,Total 0.8 mg/dL (0.3-1.2); Blood Urea Nitrogen 16 mg/dL (9-23); Calcium 9.1 mg/dL (8.3-10.6); Calcium (Corrected) 9.1 mg/dL (8.5-10.1); Chloride 105 mMol/L (98-107); Creatinine (Component) 0.6 mg/dL (0.6-1.3); Estimated Creatinine Clearance 86.5 mL/min (>60); Globulin 2.7 gm/dL (2.3-3.5); Glucose 113 mg/dL (74-106); Magnesium 2.5 mg/dL (1.6-2.6); Osmolality,Calculated 274 (275-295); Phosphorous 3.2 mg/dL (2.4-5.1); Potassium 4.3 mMol/L (3.4-5.1); Sodium 136 mMol/L (136-145); eGFR > 60 See Note
[2024-09-02] MEDS: LOSARTAN POTASSIUM 25 MG TABLET PO (08:07)
[2024-09-02] MEDS: HEPARIN SOD INJ 5000 UNIT/ML VIAL SC (08:07)
[2024-09-02] MEDS: guaiFENesin/DM TABLET 1 EACH PO (08:07)
[2024-09-02] MEDS: predniSONE 20 MG TABLET 50 MG PO (08:08)
[2024-09-02] MEDS: ACETAMINOPHEN 325 MG TABLET 650 MG PO (08:15)
[2024-09-02] MEDS: Milk Of Magnesia Susp 30 ML UDC PO (12:21)
--- NOTE | 2024-09-02 12:33 | ESDS_ITS ---
Planned Discharge Date 09/02/24 DS: Providers Provider Date of admission: 08/31/24 04:42 Primary care physician: Gabbi Griffin MD Admitting Provider: Bishnu Pozo MD Attending Provider on Admission: Kale Dennis DO Consults: 08/31/24 18:14 Referral Physical Therapy Routine Comment: Physician Instructions: Referral Respiratory Therapy Routine Comment: Attending Provider on DC: Nelson Aragon MD Discharging Provider: Nelson Aragon MD DS: Diagnosis Problem List Completed Was Problem List Reviewed/Reconciled?: Yes Hospital Course Hospital Course Hospital course: The patient is a 58-year-old female with a past medical history of hypertension, diabetes, asthma using oxygen at home as needed and inhalers presented to the ED on 08/31/2024 with shortness of breath and wheezing of about a week duration and admitted in the hospital with acute hypoxic respiratory failure secondary to asthma exacerbation.CBC is unremarkable as well as CMP except for glucose of 175. HbA1c 6.3. TSH is within normal limits. Chest x-ray was done which showed no infiltrates. Patient was treated with steroids and nebulizations during the hospital stay. Patient tested positive for orthostatic vitals during the hospital stay and stopped losartan. Patient was discharged to home with the following medications and recommendations -Follow-up with PCP within 1 week of discharge. If you do not have appointment, please follow-up with the [facility] with Dr. Aragon. Call [phone] to make an appointment. -Holding daily Losartan 25mg until follow up with PCP given Orthostatic hypotension positive. -Start albuterol inhaler, fluticasone-salmeterol inhaler, Mucinex tablet for 7 days, prednisone 50 Mg p.o. daily for 2 days. -Benzonatate 200 Mg Every 8 hourly as needed -Stop lisinopril. Continue rest of the home medications. -Take medications as prescribed. -Return to ED if symptoms persist or return # Acute hypoxic respiratory failure, resolved # Asthma exacerbation # History of asthma, since 13 years using inhalers #DM2 #Hypertension Patient plan of care was discussed with the attending physician, Dr. Sonny Aragon, PGY1 Time Spent with Patient Time attestation: Total time spent providing and/or coordinating discharge services: Time spent: Greater than 30 minutes Exam Vital Signs Temp Pulse Resp BP Pulse Ox O2 Del Method O2 Flow Rate 96.8 F 57 L 16 121/73 93 L Room Air 1 09/02/24 08:00 09/02/24 08:07 09/02/24 08:00 09/02/24 08:07 09/02/24 08:00 09/02/24 08:00 09/02/24 06:52 Narrative Exam General: Awake. HEENT: Normocephalic, atraumatic, mucous membranes moist. Heart: Regular rate and rhythm, no murmurs. Lungs: Mild occasional wheeze heard with no crackles heard. Abdomen: Soft, nondistended, nontender, positive bowel sounds. ?No guarding or rebound tenderness. Neurologic: Alert and oriented x3, no gross neurological deficit, and patient able to move all 4 extremities. Extremities: No edema. Skin: No rash or ecchymoses. Discharge Plan Plan Patient Disposition: HOME (Self Care) Patient condition on transfer: Stable Care Plan Goals: -Seguimiento con PCP dentro de la semana posterior al tracie. Si no tiene emre, favor de genevieve seguimiento con el centro cl?loren acad?salvador con la Dra. Aragon. Llame al [phone] para programar enrique emre. -Mantener 25 mg diarios de Losart?n hasta el seguimiento con PCP lesli la hipotensi?n ortost?alma rosa positiva. -Iniciar inhalador de albuterol, inhalador de fluticasona-salmeterol, tableta de Mucinex por 7 d?as, prednisona 50 Mg v.o. diariamente bouchra 2 d?as. -Benzonatato 200 Mg Cada 8 horas seg?n sea necesario -Deje de raven lisinopril. Contin?e con el linnea de los medicamentos caseros. -Raven los medicamentos seg?n lo prescrito. -Regresar al servicio de urgencias si los s?ntomas persisten o regresan. -Follow-up with PCP within 1 week of discharge. If you do not have appointment, please follow-up with the [facility] with Dr. Aragon. Call [phone] to make an appointment. -Holding daily Losartan 25mg until follow up with PCP given Orthostatic hypotension positive. -Start albuterol inhaler, fluticasone-salmeterol inhaler, Mucinex tablet for 7 days, prednisone 50 Mg p.o. daily for 2 days. -Benzonatate 200 Mg Every 8 hourly as needed -Stop lisinopril. Continue rest of the home medications. -Take medications as prescribed. -Return to ED if symptoms persist or return Prescriptions/Referrals Prescriptions/Med Rec: New fluticasone propion-salmeterol [Advair Diskus] 250-50 mcg/dose Blister With Device 2 inh INH BIDRT 30 Days Qty: 1 0RF benzonatate 100 mg Capsule 100 mg PO Q8HR PRN (Reason: Cough) 7 Days Qty: 14 0RF Mucinex DM 30-600 mg Tablet Extended Release 12 Hr 1 tab PO BID 7 Days Qty: 14 0RF albuterol sulfate [Ventolin HFA] 90 mcg/actuation HFA aerosol inhaler 1 inh inhalation Q8H PRN (Reason: shortness of breath or wheezing) 30 Days Qty: 8.5 0RF Continued pravastatin 40 mg Tablet 40 mg PO QDAY Janumet 50-1,000 mg Tablet 1 tab PO BID Jardiance 25 mg Tablet 25 mg PO QAM Discontinued lisinopril 2.5 mg Tablet 2.5 mg PO QDAY Referrals: Gabbi Griffin MD [Primary Care Provider] - Patient/Caregiver Discharge Instructions Education Materials: Understanding Asthma, Understanding Asthma Triggers, Caring for Your Inhaler, Using an Inhaler, Controlling Asthma Triggers: Irritants, Controlling Asthma Triggers ..., Exercising with Asthma, Controlling Allergens: Dust Mites, Controlling Allergens Dust Mites ..., Controlling Asthma Triggers Animals Print Language: [place] Stand Alone Forms: Vanessa Award Info., Patient Portal Info Letter Discharge Order Discharge Orders: Discharge (Routine); Ordered 09/02/24 Ordered By: Drew Jorgensen Quality Discharge Quality Measures VTE prophylaxis Attestestation Attestation I have discussed and was present for the essential components of the discharge history, physical examination, diagnosis, and discharge treatment plan with the resident. I agree with the patient's discharge care as documented by the resident and amended herein by me. Henry Dennis DO. The patient understood all discharge instructions, all questions were answered satisfactorily. The patient was instructed to return to the Emergency Department is symptoms worsened or persisted. Patient was stable, afebrile and tolerating p.o. intake, and ambulatory at time of discharge. Supplemental O2 ordered, patient will complete a short course of oral steroids, see details above. Advair also prescribed which may help the patient's severe asthma light yahaira will need close follow-up with primary care physician and possible industrial spray painter on the outpatient basis. Although this document has been carefully reviewed, there may still be some phonetic and other typographical errors. These errors are purely grammatical due to imperfections in the software program and should not be construed in any way to compromise the substance of the patient's medical care during this visit.
--- NOTE | 2024-09-02 12:50 | PC.PT ---
Patient will be D/C from PT secondary to she is xI with bed mobility, transfers, and ambulation with a FWW. She is at her PLOF. Patient is clear to ambulate to the bathroom and in the [place] with the FWW. RN notified.
[2024-09-02] MEDS: INSULIN LISPRO (AdmeLOG) 1 UNIT/0.01 ML UNIT SC (16:43)
== END 2024-09-02 18:55 | disposition home or self-care (01) | DRG 141 ==
LOC: SERX 04:19 → SERHOLD 04:57 → S3NX 16:48
PROVIDERS: Physician Assistant; Admitting Provider Student in an Organized Health Care Education/Training Program; Emergency Provider Emergency Medicine; PCP Obstetrics & Gynecology; Visit Provider Student in an Organized Health Care Education/Training Program
DX: J45.901 Unspecified asthma with (acute) exacerbation (principal); J96.01 Acute respiratory failure with hypoxia; E11.9 Type 2 diabetes mellitus without complications; I10 Essential (primary) hypertension
CPT/HCPCS: 36415; 71045; 80053; 80061; 83036; 83605; 83735; 83880; 84100; 84145; 84443; 84484; 85025; 85379; 85610; 85730; 87400; 87634; 87811; 93005; 93225; 94640; 94644; 96365; 96372; 96375; 96376; 97162; 99285; A9270; J1100; J1643; J1815; J2919; J3475; J7512; J1644